=== PATIENT | female | born 1940 | race Caucasian/White ===

== ENCOUNTER 2020-10-19 04:37 | Emergency (ER) | payer MEDICARE, SELFPAY ==
--- NOTE | ~2020-10-19 | CT_ITS ---
EXAMINATION: CT brain wo con DATE: 10/19/2020 05:10 INDICATION: Fall with posterior head injury TECHNIQUE: Computed tomography (CT) of the head was performed without intravenous contrast. Sagittal and coronal reconstructions were performed. The mA was adjusted according to patient size. Iterative reconstruction technique was employed. The dose-length product was 605.33 mGy-cm. COMPARISON: head CT dated 02/15/17 FINDINGS: No fracture. No acute intracranial hemorrhage, acute infarction or abnormal extra axial fluid collect ion. There is mild scattered white matter hypoattenuation consistent with chronic small vessel ischem ic disease. Symmetric prominence of the sulci consistent with mild age-appropriate diffuse cerebral v olume loss. Ventricles are normal and symmetric. No mass/mass effect. Mild mucosal thickening the lef t maxillary sinus. The orbits and mastoid air cells are normal. Intracranial calcified cerebral ather osclerosis is noted. IMPRESSION: 1. No fracture or acute intracranial process. 2. Age-related changes including mild diffuse volume loss and mild scattered white matter hypoattenua tion consistent with chronic small vessel ischemic disease. Reviewed, dictated and finalized at location [facility]. IMPRESSION: 1. No fracture or acute intracranial process. 2. Age-related changes including mild diffuse volume loss and mild scattered wh ite matter hypoattenuation consistent with chronic small vessel ischemic diseas e.
--- NOTE | ~2020-10-19 | XR_ITS ---
EXAMINATION: XR ribs LT 2V w CXR 2V DATE: 10/19/2020 05:17 INDICATION: Lateral sided left rib pain post fall TECHNIQUE: PA and lateral views of the chest and 3 views of the left ribs were obtained. COMPARISON: Chest radiograph dated 01/14/2016 FINDINGS: Old healed lateral left seventh rib fracture. No acute rib fractures identified. Lungs are clear with no focal airspace opacities, pulmonary edema, pleural effusion or pneumothorax. Mild lumbar levoscol iosis. Moderate thoracic spondylosis. Severe lower lumbar spondylosis. At least moderate severity ost eoarthritis at both shoulders. Cholecystectomy clips in right upper quadrant. IMPRESSION: 1. No acute rib fracture or acute cardiopulmonary disease. Reviewed, dictated and finalized at location A.
[2020-10-19 04:38] VITALS: BP 129/57; PULSE 72; RESP 16; TEMP 37; O2SAT 100
--- NOTE | 2020-10-19 04:47 | ED.HEATRA ---
HPI - Head Injury General Chief complaint: Head Injury Stated complaint: fell, head injury Time Seen by Provider: 10/19/20 04:46 History of Present Illness HPI Narrative: 80 yo female presents form home after a fall. She reports that she was walking around in socks when one of them slipped causing her to fall. She struck the left side of her ihea in the fall. She sustained a laceration to the left scalp. She has mild pain and would not like anything for it at this time. She denies any other pain or injury. No LOC, confusion, weakness, dizziness, blood thinners. Related Data Allergies Allergy/AdvReac Type Severity Reaction Status Date / Time codeine Allergy Unknown Verified 08/13/14 14:02 NARCOTICS Allergy Unknown Uncoded 02/24/15 15:04 Review of Systems Review of Systems: All systems reviewed & are unremarkable except as noted in HPI and below Cardiovascular: Cardiovascular: Denies chest pain Respiratory: Respiratory: Denies dyspnea Gastrointestinal: Gastrointestinal: Denies nausea Genitourinary: Genitourinary: Reports no additional female genitourinary complaints Musculoskeletal: Musculoskeletal: Denies back pain Neurologic: Denies confusion, Denies dizziness, Denies syncope, Reports headache(s), Denies numbness and Denies weakness Hematologic/Lymphatic: Hematologic/Lymphatic: Denies easy bleeding and Denies easy bruising PMFSH Family History Family History Other Family history of malignant neoplasm of skin Social History Social History Smoking status: Never smoker Alcohol intake: current Exam Const: General: healthy appearing, no acute distress and alert Orientation/consciousness: patient oriented x3 HENMT: Head: laceration (left parietal scalp, 2 cm) Eyes: Conjunctivae: conjunctivae normal Pupils: Equal, round and reactive pupils present EOM: EOMs intact bilaterally Neck: Neck: normal visual inspection Resp: Effort & Inspection: normal respiratory effort Auscultation: clear to auscultation bilaterally, no rales, no rhonchi and no wheezes Cardio: Jugular venous distension: no JVD Rate: regular rate Rhythm: regular rhythm Heart sounds: no murmurs Back/Spine/Pelvis: Other: cervicla spine nontender Skin: General skin exam: normal color Neuro: General: patient oriented x3 and moves all extremities Cranial nerves: Yes CN's II-XII intact bilaterally Speech: normal speech Gait exam (Neuro): Normal gait present Extrem: General: normal to inspection and no edema Psych: Appearance: well kempt Affect: normal affect Course Vital Signs Vital signs: Vital Signs Temperature 37.0 C 10/19/20 04:38 Pulse Rate 72 10/19/20 04:38 Respiratory Rate 16 10/19/20 04:38 Blood Pressure 129/57 L 10/19/20 04:38 Pulse Oximetry 100 10/19/20 04:38 Temperature 37.0 C 10/19/20 04:38 Pulse Rate 67 10/19/20 06:34 Respiratory Rate 18 10/19/20 06:34 Blood Pressure 119/81 10/19/20 06:34 Pulse Oximetry 100 10/19/20 06:34 Procedures Laceration Laceration 1: Site: scalp Side (If applicable): left Size (cm): 2 Description: linear Depth: simple, single layer Local Anesthetic: none Pre-repair: wound explored and irrigated ====== Skin Level ====== Skin layer closed with: reuben Number of sutures: 2 ====== Subcutaneous Layer ====== ====== Muscle Layer ====== ====== Tendon Layer ====== MDM - Head Injury MDM Narrative Medical decision making narrative: Imaging negative. Laceration repaired. walking with stable gait. Imaging Data Radiologist's impression: ITS Impressions Ribs w/Chest X-Ray 10/19/20 10:47 IMPRESSION: 1. No acute rib fracture or acute cardiopulmonary disease. Head CT 10/19/20 12:40 IMPRESSION: 1. No fracture or acute intracranial process. 2. Age-
[2020-10-19 06:34] VITALS: BP 119/81; PULSE 67; RESP 18; O2SAT 100
== END 2020-10-19 06:37 | disposition home or self-care (01) ==
LOC: ANHED 06:20
PROVIDERS: Emergency Provider Emergency Medicine; PCP Internal Medicine
DX: S01.01XA Laceration without foreign body of scalp, initial encounter (principal); W01.0XXA Fall on same level from slipping, tripping and stumbling without subsequent striking against object, initial encounter
CPT/HCPCS: 12001; 70450; 71046; 71100; 99284

== ENCOUNTER 2021-11-23 09:33 | Inpatient (IN) | payer MEDICARE, SELFPAY ==
[2021-11-23] VITALS (23 sets, daily range): BP systolic 95–146; BP diastolic 60–119; PULSE 81–102; RESP 10–30; TEMP 36.3–36.8; O2SAT 93–99; BMI 27.1
--- NOTE | 2021-11-23 | ECHO_ITS ---
Patient Info Name: Prisca Last Age: 81 years : 1940 Gender: Female Ht: 66 in Wt: 149 lbs BSA: 1.78 m2 HR: 94 bpm BP: 102 / 69 mmHg Heart Rhythm: Sinus Rhythm Technical Quality: Fair Exam Date: 11/23/2021 4:21 PM Exam Location: [facility] Pulmonary Exam Room: 205 Patient Status: Inpatient Admit Date: 11/23/2021 Staff Ordering Physician: Luz Maria Morales APRN Shear Setter: Alejandra Madden RDCS Attending Provider: Yessica Puga DO Referring Physician: Carmen MELENDEZ; Exam Type: CA echo doppler color flow Study Info Indications - sob Complete two-dimensional, color flow and Doppler transthoracic echocardiogram is performed. Summary 1. Complete two-dimensional, color flow and Doppler transthoracic echocardiogram is performed. 2. Ventricular size with moderate concentric hypertrophy. Good systolic function of all segments with ejection fraction 65%. No segmental wall motion abnormalities although there is flattening of the ventricular septum during diastole consistent with right ventricular volume overload. Grade 1 diastolic dysfunction is present. 3. Moderate right ventricular enlargement and right ventricular hypokinesis with sparing of the apex, consistent with Omalley's sign, and suggests possible pulmonary embolus. 4. Normal sinus rhythm. Left Ventricle Left ventricular chamber dimension is normal. Left ventricular systolic function is normal, estimated at Empty. There is moderately increased left ventricular wall thickness. Left ventricular septal wall motion is normal. The left ventricular diastolic function is grade I diastolic dysfunction. Right Ventricle Right ventricular chamber dimension is moderately enlarged. Right ventricular systolic function is reduced. Left Atria Left atrial chamber dimension is normal. Right Atria Right atrial chamber dimension is normal. Aortic Valve The aortic valve is trileaflet. There is mild aortic valve sclerosis. There is no aortic valve stenosis. There is no aortic valve regurgitation. Pulmonic Valve The pulmonic valve is normal. There is no pulmonic valve stenosis. There is trace pulmonic regurgitation. Mitral Valve The mitral valve has normal leaflets. There is no mitral valve stenosis. There is no mitral valve regurgitation. Tricuspid Valve The tricuspid valve leaflets are normal. There is no significant tricuspid valve stenosis. There is mild to moderate tricuspid valve regurgitation. Severe pulmonary hypertension, estimated pulmonary arterial systolic pressure is 78 mmHg. Pericardium/Pleural The pericardium appears normal. There is no pericardial effusion. Inferior Vena Cava Normal inferior vena cava with >50% collapse upon inspiration consistent with Empty right atrial pressure, 10 mmHg. Aorta The aortic root size at the sinus of Valsalva is normal. The prox ascending aorta size is normal. Left Ventricular Outflow Tract Name Value Normal LVOT 2D LVOT Diameter 2.0 cm LVOT Doppler LVOT Peak Gradient 5 mmHg LVOT Mean Gradient 3 mmHg
--- NOTE | ~2021-11-23 | CT_ITS ---
EXAMINATION: CTA chest PE protocol DATE: 11/24/2021 10:21 INDICATION: Shortness of breath TECHNIQUE: Computed tomography angiography (CTA) of the chest was performed with 100 mL Omnipaque-350 intravenous contrast timed to evaluate the pulmonary arteries. Coronal maximum intensity projection 3D-reconstructions were created by the technologist. Automated exposure control and iterative reconst ruction technique were employed. Exam dose: 396.31 mGy-cm total exam DLP. COMPARISON: 11/23/2021 AP and lateral chest FINDINGS: There is diagnostic contrast enhancement of the pulmonary arteries. There is extensive bila teral pulmonary embolism including saddle embolus at the pulmonary artery bifurcation, extending into left and right main pulmonary arteries. Right pulmonary artery bifurcation saddle embolus and extens jos clot burden in the right upper, middle and lower lobes. There are left upper lobe, lingular and l eft lower lobe pulmonary emboli. There is right ventricular strain. Cardiomegaly. No pericardial or pleural effusion. Borderline thoracic aortic size, the ascending aorta measuring up to 3.8 cm diameter, the aortic arch up to 3 cm diameter; normal caliber of the descending thoracic aorta. No hilar or mediastinal mass lesion or lymphadenopathy. No pulmonary infiltrate or consolidation or pulmonary mass lesion. Small sliding hiatal hernia. Status post cholecystectomy. Suggestion of some surface nodularity of liver; consider cirrhosis. Calcified hepatic and splenic gra nulomas consistent with old granulomatous disease. Upper pole right renal cyst. Small nonobstructing left renal calculus Bilateral glenohumeral osteoarthritis. Degenerative changes of the cervical, thoracic and lumbar spin e, including severe degenerative disc disease at C5-6, diffuse idiopathic skeletal hyperostosis of th e thoracic spine, lumbar degenerative disc disease. No suspicious osteolytic or osteoblastic lesions are noted.. IMPRESSION: Extensive bilateral pulmonary emboli with evidence of right ventricular strain Dr. Armendariz telephoned the report on 11/24/2021 at 1034 hours to IMU nurse Jensen Reviewed, dictated and finalized at [facility]. Reviewed, dictated and finalized at location B. IMPRESSION: Extensive bilateral pulmonary emboli with evidence of right ventri cular strain Dr. Armendariz telephoned the report on 11/24/2021 at 1034 hours to IMU nurse Camila
--- NOTE | ~2021-11-23 | XR_ITS ---
XR chest 2V DATE: 11/23/2021 10:16 INDICATION: Shortness of breath TECHNIQUE: AP and lateral views COMPARISON: 10/19/2020 PA and lateral chest FINDINGS: There is cardiomegaly. Is aortic calcification and mild tortuosity. No hilar or mediastinal enlargement. The lungs are moderately hyperinflated but clear of infiltrate or consolidation. No pleural effusion or pulmonary vascular congestion or pneumothorax. Diffuse osteopenia. There is osteophytic change at the glenohumeral joints and degenerative change at the acromioclavicular joints. There is dextroscoliosis and degenerative spurring of the thoracic spi ne. IMPRESSION: Cardiomegaly Aortic atherosclerosis Moderate hyperinflation. No active pulmonary disease Reviewed, dictated and finalized at location B.
--- NOTE | 2021-11-23 09:41 | ECG_ITS ---
Measurements Intervals [place] Rate: 91 P: 69 TN: 162 QRS: -27 QRSD: 103 T: -59 QT: 359 QTc: 442 Interpretive Statements SINUS RHYTHM BORDERLINE LEFT AXIS DEVIATION [QRS AXIS < -20] INCOMPLETE RIGHT BUNDLE BRANCH BLOCK [90+ ms QRS DURATION, TERMINAL R IN V1/V2, 40+ ms S IN I/aVL/V4/V5/V6] POSSIBLE PREVIOUS INFERIOR INFARCTION ABNORMAL ECG NO PREVIOUS ECG AVAILABLE FOR COMPARISON Electronically Signed On 11-23-2021 15:47:43 CDT by Mod[place] Marie M.D.
--- NOTE | 2021-11-23 09:51 | ED.WEAKNESS ---
HPI - Weakness General Chief complaint: Shortness of Breath/Dyspnea Stated complaint: difficulty breathing, light headed, weakness Time Seen by Provider: 11/23/21 09:43 History of Present Illness HPI Narrative: Patient is a 81-year-old female who tells me she is previously healthy here for evaluation of weakness over the past 3 days. Patient states that she has been feeling winded and short of breath with her everyday activities, which she states is very unusual for her. She states that she has been taking it easy the past couple of days because of feeling weak, but today it increased and she was unable to get out of bed. Denies syncope, chest pain, fevers, chills, cough, leg swelling, rhinorrhea, congestion, nausea, vomiting, abdominal pain, rashes. Related Data Home Medications Medication Instructions Recorded Confirmed cholecalciferol (vitamin D3) 50 50 mcg PO DAILY 11/04/20 11/23/21 mcg (2,000 unit) capsule donepezil 10 mg tablet 10 mg PO QHS 11/04/20 11/23/21 escitalopram oxalate 20 mg tablet 20 mg PO DAILY 11/04/20 11/23/21 multivitamin 1 tablet PO DAILY 11/04/20 11/23/21 memantine 10 mg tablet 10 mg PO BID 11/23/21 11/23/21 Allergies Allergy/AdvReac Type Severity Reaction Status Date / Time codeine Allergy Intermediate Nausea Verified 11/04/20 14:49 NARCOTICS Allergy Intermediate Nausea Uncoded 11/04/20 14:49 Review of Systems Review of Systems: Gen: Reports fatigue and weakness Eyes: Denies eye pain or visual change ENT: Denies congestion Respiratory: Reports shortness of breath. Denies cough CV: Denies chest pain or palpitations GI: Denies abdominal pain nausea, emesis or diarrhea : denies burning, urgency, frequency or hematuria Musculoskeletal: Denies back pain or muscle pain Neuro: Denies numbness, tingling, weakness or focal weakness Skin: Denies rash Except as documented, all other systems reviewed and negative [facility] Past Medical History Medical History Abnormality of gait Alzheimer's dementia Cerebral atherosclerosis Diverticulosis ALINA (generalized anxiety disorder) Laceration of head Surgical History Surgical History History of cholecystectomy Family History Family History Mother , Late 70s Heart disease Father Family estrangement Other Family history of malignant neoplasm of skin Social History Social History (Updated 11/23/21 @ 15:06 by Luz Maria Morales APRN) Social History: , sedentary Smoking status: Never smoker Second hand tobacco smoke exposure: No Alcohol intake: never Substance use: never Substance use type: does not use Living arrangements: with family Additional living arrangements comments: lives with spouse and son Gender identity (if verbalized by the patient): Female Sexual Orientation (if Verbalized by the Patient): Straight or Heterosexual Spiritual care concerns: No Exam Narrative: APPEARANCE: Ill-appearing, fatigued appearing. Head: Normocephalic and atraumatic. EYES: PERRLA/EOMI, conjunctivae clear NOSE: No nasal drainage EARS: External ear normal in appearance THROAT: Oropharynx is clear. Mucous membranes are moist. NECK: Supple. No adenopathy, no masses. RESPIRATORY: Airway patent, respirations nonlabored. Clear to auscultation bilaterally, no rales, rhonchi, wheezing. CARDIOVASCULAR: Regular rate and rhythm without murmurs, rubs, or gallops. ABDOMINAL: Normoactive bowel sounds. Soft, nontender, nondistended. No rebound tenderness or guarding. MUSCULOSKELETAL: Extremities are warm and well-perfused. Moves all extremities well. No edema. NEURO: Normal speech. No focal neurologic deficits. SKIN: Skin is warm and dry. No rashes. PSYCHIATRIC: Normal affect/mood. Course Course Emergency Course: Discussed with yeimi schmid
[2021-11-23 10:03] LABS: Basophils Percent Auto 0.3 % (0.2-1.2); Eosinophils Absolute Auto 0.1 K/mm3 (0-0.3); Eosinophils Percent Auto 0.4 % (0-4.4); Hemoglobin 15.3 g/dL (12.0-15.0); Immature Granulocyte Absolute 0.05 K/mm3 (0.00-0.031); Immature Granulocyte Percent A 0.4 % (0-0.5); Lymphocytes Absolute Auto 2.48 K/mm3 (0.9-3.2); Lymphocytes Percent Auto 17.9 % (18.3-44.2); Mean Corpuscular HGB Conc 32.6 g/dl (32-36); Mean Corpuscular Hemoglobin 28.8 pg (26-34); Mean Corpuscular Volume 88.3 fl (80-100); Mean Platelet Volume 11.3 fl (7.4-10.4); Monocytes Absolute Auto 0.9 K/mm3 (0.1-0.6); Monocytes Percent Auto 6.8 % (2.6-8.5); Neutrophils Absolute Auto 10.3 K/mm3 (1.3-6.7); Neutrophils Percent Auto 74.2 % (45.5-73.1); Platelet Count Result 188 k/mm3 (150-375); Red Blood Count 5.32 M/mm3 (4.2-5.4); Red Cell Distribution Width 13.7 % (11.5-14.5); White Blood Count 13.9 K/mm3 (4.5-10.0)
--- NOTE | 2021-11-23 10:18 | PC.NURSE ---
Pt states she is unable to void at this time.
[2021-11-23 10:24] LABS: Alanine Aminotransferase 22 U/L (6-35); Albumin Level 4.5 g/dL (3.5-5.1); Alkaline Phosphatase 71 U/L (38-126); Anion Gap 11 mmol/L (8-16); Aspartate Amino Transferase 33 U/L (14-36); Bilirubin,Total 1.7 mg/dL (0.2-1.3); Blood Urea Nitrogen 19 mg/dL (7-17); Calcium 9.4 mg/dL (8.4-10.2); Carbon Dioxide 20 mmol/L (22-30); Chloride 106 mmol/L (98-107); Estimated Glomerular Filt Rate 53; Glucose 99 mg/dL (65-110); Potassium 4.5 mmol/L (3.4-5.0); Sodium 137 mmol/L (137-145)
[2021-11-23 10:37] LABS: INR 1.1
[2021-11-23 10:38] LABS: Partial Thromboplastin Time 28.1 SECONDS (22.3-36.8)
[2021-11-23 10:56] LABS: NT Pro B Type Natriuretic Pept 10800 pg/mL (5-100)
[2021-11-23 11:24] LABS: SARS-CoV-2 RNA PCR Negative
--- NOTE | 2021-11-23 11:57 | PC.NURSE ---
Lasix discontinued per ANGEL Tate.
--- NOTE | 2021-11-23 13:28 | ADMGEN ---
This patient, Prisca Last, was admitted to IMU Room 205-02. Patient/family oriented to hospital policies and general routines including ID bracelet, bed and alarms, visiting hours, pain management, procedures, bathroom and other care routines, personal items, smoking policy, room service/diet, and visiting hours. Information on how to activate the Rapid Response Team has been discussed. Patient/Family are encouraged to report perceived risks to care and to ask questions if they do not understand what they are told or what they should do.
[2021-11-23 13:55] LABS: Troponin I 0.062 ng/mL (0.000-0.034)
--- NOTE | 2021-11-23 13:56 | PM.IMHP ---
H&P: HPI History of Present Illness Date/Time: 11/23/21 13:56 Chief Complaint: Shortness of breath Narrative: Prisca Last is an 81-year-old female with medical comorbidities of dementia, anxiety, and cerebral atherosclerosis. She presented to the ED for evaluation of progressively worsening dyspnea and weakness. The patient if a poor historian due to her dementia. Her son-in-law and son, whom she lives with, were at bedside and assisted with patient history. The patient was reportedly in her usual health until Tuesday of last week, when she was noted to be dyspneic on exertion, c/o lightheadedness, and had difficulty performing her usual activities. The patient's son states her blood pressure was around 107/80, HR 90-115 bpm, and her oxygen level dropped to the 70s on room air. Her oxygen level would increase to 88-95% after deep breathing he states. No known fever, chills, cough, sputum, diaphoresis, abdominal pain, nausea or vomiting. She reportedly was unsteady, with small bout of diarrhea and poor appetite. The patient reports some tightness in her chest, but when asked to qualify, she states she had to focus on breathing because her lungs couldn't do it. She feels out of breath with activity. Her son-in-law states she is sedentary at baseline and has had difficulty getting to the bathroom due to symptoms, which is not typical. She denies sinus congestion, paroxysmal nocturnal dyspnea, orthopnea, edema, or weight changes. In the ED, vitals were BP 131/119, HR 94, temp 98.2F, spO2 98% on room air. Wgt 76.1 kg, and BMI 27 kg/m2. Lab work was significant for WBC 13.9, normal H/H, troponin I 0.070, pro-BNP 21242, and unremarkable CMP. COVID19 PCR was negative. EKG showed SR with incomplete RBBB and T-wave inversions V3-4. Chest x-ray was without acute process, but did demonstrate hyperinflated lungs and cardiomegaly. She was admitted to IMU for further cardiac evaluation. Review of Systems Review of Systems: All systems reviewed & are unremarkable except as noted in HPI and below PMFSH Past Medical History Medical History Abnormality of gait Alzheimer's dementia Cerebral atherosclerosis Diverticulosis ALINA (generalized anxiety disorder) Laceration of head Surgical History Surgical History History of cholecystectomy Family History Family History Mother , Late 70s Heart disease Father Family estrangement Other Family history of malignant neoplasm of skin Social History Social History (Updated 11/23/21 @ 15:06 by Luz Maria Morales APRN) Social History: , sedentary Smoking status: Never smoker Second hand tobacco smoke exposure: No Alcohol intake: never Substance use: never Substance use type: does not use Living arrangements: with family Additional living arrangements comments: lives with spouse and son Gender identity (if verbalized by the patient): Female Sexual Orientation (if Verbalized by the Patient): Straight or Heterosexual Spiritual care concerns: No Meds Home Medications and Allergies Home Medications Medication Instructions Recorded Confirmed Type cholecalciferol (vitamin D3) 50 50 mcg PO DAILY 11/04/20 11/04/20 History mcg (2,000 unit) capsule donepezil 10 mg tablet 10 mg PO QHS 11/04/20 11/04/20 History escitalopram oxalate 20 mg tablet 20 mg PO DAILY 11/04/20 11/04/20 History multivitamin 1 tablet PO DAILY 11/04/20 11/04/20 History memantine 10 mg tablet 10 mg PO BID 11/23/21 11/23/21 History Allergies Allergy/AdvReac Type Severity Reaction Status Date / Time codeine Allergy Intermediate Nausea Verified 11/04/20 14:49 NARCOTICS Allergy Intermediate Nausea Uncoded 11/04/20 14:49 Vital Signs Vital Signs - 24 hr 11/23/21 09:42 11/23/21 10:14 11/23/21 09:47 Temperat
[2021-11-23 16:58] LABS: CRP 1.4 mg/dL (<1.0)
[2021-11-23 17:10] LABS: Troponin I 0.056 ng/mL (0.000-0.034)
[2021-11-23 17:16] LABS: Procalcitonin 0.1 ng/mL
[2021-11-23] MEDS: DOCUSATE SODIUM 100 MG CAPSULE PO (17:45)
[2021-11-23] MEDS: MEMANTINE 10 MG TABLET PO (17:45)
[2021-11-23 19:25] LABS: Appearance Urine Clear (Clear); Bilirubin Urine Negative (Negative); Blood Urine Negative (Negative); Color Urine Yellow (Yellow); Glucose Urine UA Negative (Negative); Ketones Urine Negative (Negative); Leukocyte Esterase Ur 2+ LEU/UL (Negative); Nitrate Urine Negative (Negative); Protein Urine Negative (Negative); Urobilinogen Urine 0.2 mg/dL (<2.0); pH Urine 5.5 (5.0-9.0)
[2021-11-23 19:32] LABS: Bacteria Urine Trace /hpf; Calcium Oxalate Crystals Urine Present /hpf; Mucus Urine Rare /lpf; Squamous Epithelial Cell Urine Occasional /hpf (Few); WBC Urine 31-50 /hpf
[2021-11-23 19:41] LABS: Add Urine Microscopic? YES
[2021-11-24] VITALS (17 sets, daily range): BP systolic 105–143; BP diastolic 63–85; PULSE 84–106; RESP 18–20; TEMP 36.4–37.1; O2SAT 90–97
[2021-11-24 05:02] LABS: Blood Urea Nitrogen 17 mg/dL (7-17)
[2021-11-24 05:03] LABS: Anion Gap 8 mmol/L (8-16); Calcium 8.8 mg/dL (8.4-10.2); Carbon Dioxide 23 mmol/L (22-30); Chloride 107 mmol/L (98-107); Cholesterol 194 mg/dL (0-200); Estimated CRCL calculation 36 ml/min; Estimated Glomerular Filt Rate 53; Glucose 105 mg/dL (65-110); HDL Direct 41 mg/dL; LDL Cholesterol Direct 110 mg/dL; Magnesium 2.2 mg/dL (1.6-2.3); Potassium 3.9 mmol/L (3.4-5.0); Sodium 138 mmol/L (137-145); Triglycerides 178 mg/dL (<150)
--- NOTE | 2021-11-24 07:00 | ECG_ITS ---
Measurements Intervals [place] Rate: 91 P: 68 MI: 148 QRS: -23 QRSD: 101 T: -37 QT: 409 QTc: 504 Interpretive Statements SINUS RHYTHM LOW QRS VOLTAGE IN PRECORDIAL LEADS INCOMPLETE RIGHT BUNDLE BRANCH BLOCK POSSIBLE ANTERIOR MYOCARDIAL INFARCTION , OF INDETERMINATE AGE INFERIOR MYOCARDIAL INFARCTION , OF INDETERMINATE AGE T-WAVE ABNORMALITY, CONSIDER ISCHEMIA Electronically Signed On 11-24-2021 12:58:08 CDT by Meño Bowen M.D.
[2021-11-24 08:26] LABS: Hematocrit 43.2 % (37.0-47.0); Mean Corpuscular HGB Conc 32.4 g/dl (32-36); Mean Corpuscular Hemoglobin 28.9 pg (26-34); Mean Corpuscular Volume 89.1 fl (80-100); Mean Platelet Volume 11.7 fl (7.4-10.4); Platelet Count Result 179 k/mm3 (150-375); Red Blood Count 4.85 M/mm3 (4.2-5.4); Red Cell Distribution Width 13.6 % (11.5-14.5); White Blood Count 12.2 K/mm3 (4.5-10.0)
--- NOTE | 2021-11-24 09:12 | PM.CNCAR ---
Assessment and Plan Assessment and plan (1) Dyspnea: Qualifiers: Dyspnea type: shortness of breath Qualified Code(s): R06.02 - Shortness of breath Code(s): R06.00 - Dyspnea, unspecified Status: Acute Assessment and Plan: Sedentary older lady admitted with shortness of breath, initially thought to be CHF due to elevated proBNP. However her chest x-ray is clear. Echo findings are consistent with a pulmonary embolus, with right ventricular enlargement and hypokinesis, Omalley will sign, and severe pulmonary hypertension. Normal left ventricle. Stat CTA of the chest Lovenox x1 now; discussed with RN Discussed my concerns with patient's and son (2) Pulmonary hypertension: Code(s): I27.20 - Pulmonary hypertension, unspecified Status: Acute Assessment and Plan: Severe pulmonary hypertension in the absence of chronic lung disease, suggestive of pulmonary embolus (3) Elevated troponin: Code(s): R77.8 - Other specified abnormalities of plasma proteins Status: Acute Assessment and Plan: Patient has an elevated troponin and abnormal EKG. Pulmonary embolus is suspected If CTA is negative, will evaluate for coronary disease (4) Alzheimer's dementia: Code(s): G30.9 - Alzheimer's disease, unspecified; F02.80 - Dementia in other diseases classified elsewhere without behavioral disturbance Status: Chronic Assessment and Plan: Pleasantly demented lady, cooperative. History of Present Illness History of Present Illness Consult date/time: 11/24/21 09:12 Reason For Visit: Dyspnea Narrative: Prisca Last is an 81 y.o. female whom we were asked to see by Lea ORTIZ, for our advice an opinion regarding her elevated troponins and BNP in consultation. H/O dementia. The patient has been previously healthy with no history of heart disease, blood clots or lung disease. She was in her normal state of health until Tuesday when family members noted that she was short of breath. She also complained of weakness. She might of had some tightness in her chest, but she denied any chest pain on my conversation. The patient states she is ?always on the go? and does not like to sit but the family member states that she is very sedentary. No edema, hypertension, diabetes, bleeding problems, recent car trips. History was obtained from EMR, the patient, and because of her dementia I also spoke to the patient's and son Pito. Review of Systems Constitutional: Constitutional: Reports fatigue (Weakness recently) Eyes: Eyes: Reports no additional eye complaints ENT: Denies epistaxis Cardiovascular: Cardiovascular: Reports chest pain (Perhaps some tightness?), Denies pedal edema, Denies leg edema, Denies lightheadedness and Denies palpitations Respiratory: Respiratory: Denies chest congestion, Denies cough, Reports dyspnea and Reports dyspnea on exertion Gastrointestinal: Gastrointestinal: Denies abdominal pain, Denies hematochezia and Denies hematemesis Musculoskeletal: Musculoskeletal: Denies back pain Integumentary/Breasts: Skin/Breast: Denies rash Neurologic: Reports confusion Psychiatric: Psychiatric: Reports no additional psychiatric complaints PMFSH Past Medical History Medical History Abnormality of gait Alzheimer's dementia [facility]. Cerebral atherosclerosis Diverticulosis ALINA (generalized anxiety disorder) Laceration of head Surgical History Surgical History History of cholecystectomy Family History Family History Mother , Late 70s Heart disease Father Family estrangement Other Family history of malignant neoplasm of skin Social History Social History (Updated 0
[2021-11-24] MEDS: ESCITALOPRAM OXALATE 10 MG TABLET 20 MG PO (10:52)
[2021-11-24] MEDS: CHOLECALCIFEROL 1,000 UNITS TABLET 2000 UNITS PO (10:52)
[2021-11-24] MEDS: PANTOPRAZOLE 40 MG TABLET PO (10:52)
[2021-11-24] MEDS: DONEPEZIL HCL 10 MG TABLET PO (10:52)
[2021-11-24] MEDS: DOCUSATE SODIUM 100 MG CAPSULE PO ×2 (10:52→17:41)
[2021-11-24] MEDS: MULTIVITAMINS THERAPEUTIC TAB (*BKC) 1 TABLET PO (10:52)
[2021-11-24] MEDS: ROSUVASTATIN 10 MG TABLET PO (10:53)
[2021-11-24] MEDS: ENOXAPARIN 80 MG/0.8 ML SYRINGE 75 MG SUB-Q ×2 (10:55→20:45)
[2021-11-24] MEDS: MEMANTINE 10 MG TABLET PO ×2 (10:56→17:41)
--- NOTE | 2021-11-24 11:37 | PCPTNOTE ---
Attempted PT evaluation, per RN, patient is not medically stable to be seen today due to having Extensive bilateral pulmonary emboli with evidence of right ventricular strain. Will Follow.
--- NOTE | 2021-11-24 12:03 | PM.IMPN ---
Progress Note: A&P Assessment and Plan (1) Acute saddle pulmonary embolism: Code(s): I26.92 - Saddle embolus of pulmonary artery without acute cor pulmonale Status: Acute Assessment and Plan: C/o SOB with minimal exertion (per family) x 3 days, w/associated weakness, lightheadedness. pro-BNP 23505, Troponin 0.70-->0.62, WBC 13.9, no reported fevers, chest X-ray with cardiomegaly, hyperinflation and no acute pulmonary disease. COVID19 PCR negative. CTA chest positive for bilateral PE with saddle embolus. Lovenox 1 mg/kg started. Patient is hemodynamically stable, not requiring supplemental O2 and able to tolerate anticoagulation. Consider transfer for thrombolysis or embolectomy if patient becomes unstable. Transition to DOAC prior to discharge. Transthoracic echocardiogram no CHF, dose show right heart strain and severe pulmonary hypertension. Cardiology following (2) Pulmonary hypertension: Code(s): I27.20 - Pulmonary hypertension, unspecified Status: Acute Assessment and Plan: Secondary to above. (3) Elevated troponin: Code(s): R77.8 - Other specified abnormalities of plasma proteins Status: Acute Assessment and Plan: Trending down. Secondary to above. (4) Generalized weakness: Code(s): R53.1 - Weakness Status: Acute Assessment and Plan: w/unsteady gait per family. Consult PT/OT. (5) Alzheimer's dementia: Code(s): G30.9 - Alzheimer's disease, unspecified; F02.80 - Dementia in other diseases classified elsewhere without behavioral disturbance Status: Chronic Assessment and Plan: Continue donepezil. (6) ALINA (generalized anxiety disorder): Code(s): F41.1 - Generalized anxiety disorder Status: Chronic Assessment and Plan: Continue lexapro. Plan CODE STATUS: FULL CODE DISPOSITION: Home with family ESTIMATED LOS: >3 midnights Subjective Date/time seen: 11/24/21 12:03 Patient does not know why she is in the hospital. She denies chest pain, SOB, cough, hemoptysis, pain or swelling. Nursing reports no overnight events. Review of Systems Review of Systems: All systems reviewed & are unremarkable except as noted in HPI and below Exam Narrative: GENERAL: no distress, older adult female sitting up in bed. No oxygen. HEENT: normocephalic, PERRLA. conjunctivae clear. Mucous membranes moist. NECK: No JVD. LUNGS: Respirations 20 bpm. Lung sounds diminished RLL. No wheezing. Speaking in full sentences. HEART: Normal S1 and S2 regular rate and rhythm without murmurs, rubs or gallops. NSR on telemetry. ABDOMEN: Soft, round, nontender to palpation. Normoactive bowel sounds.? No guarding. EXTREMITIES: Moves all extremities equally and with generalized weakness 4-5/5 bilaterally. No edema. No calf tenderness. Radial and dorsalis pedis pulses palpable. NEURO: Alert and oriented to self, hospital, forgetful. No focal deficits. SKIN: Warm, dry. Fair skin, normal for ethnicity. No rashes, lesions or open wounds. Mildly dry BLE. PSYCHIATRIC: Neutral mood and affect. Cooperative with examination. Pleasant. Objective Data Vital Signs Vital Signs: Vital Signs - 24 hr 11/23/21 12:05 11/23/21 12:41 11/23/21 12:52 Temperature Pulse Rate 90 86 89 Respiratory Rate 15 14 15 Blood Pressure Pulse Oximetry 97 95 96 Oxygen Delivery 11/23/21 13:55 11/23/21 15:25 11/23/21 16:00 Temperature 97.3 F L Pulse Rate 93 81 Respiratory Rate 30 H Blood Pressure 102/69 Pulse Oximetry 94 Oxygen Delivery Room Air 11/23/21 16:00 11/23/21 18:02 11/23/21 18:00 Temperature 97.6 F Pulse Rate 95 89 Respiratory Rate 24 H Blood Pressure 109/68 Pulse Oximetry 94 94 Oxygen Delivery Room Air 11/23/21 20:00 11/23/21 20:00 11/23/21 20:00 Temperature 97.9 F Pulse Rate 98 93 Respiratory Rate 18 Blood Pressure 114/60 Pulse Oximetry 96 Ox
[2021-11-25] VITALS (17 sets, daily range): BP systolic 105–139; BP diastolic 41–80; PULSE 80–100; RESP 18–22; TEMP 36.2–36.7; O2SAT 94–100
[2021-11-25] MEDS: CHOLECALCIFEROL 1,000 UNITS TABLET 2000 UNITS PO (09:01)
[2021-11-25] MEDS: ROSUVASTATIN 10 MG TABLET PO (09:01)
[2021-11-25] MEDS: ESCITALOPRAM OXALATE 10 MG TABLET 20 MG PO (09:01)
[2021-11-25] MEDS: DOCUSATE SODIUM 100 MG CAPSULE PO ×2 (09:01→16:49)
[2021-11-25] MEDS: MEMANTINE 10 MG TABLET PO ×2 (09:01→16:49)
[2021-11-25] MEDS: MULTIVITAMINS THERAPEUTIC TAB (*BKC) 1 TABLET PO (09:01)
[2021-11-25] MEDS: PANTOPRAZOLE 40 MG TABLET PO (09:01)
[2021-11-25] MEDS: ENOXAPARIN 80 MG/0.8 ML SYRINGE 75 MG SUB-Q ×2 (09:02→21:36)
[2021-11-25] MEDS: DONEPEZIL HCL 10 MG TABLET PO (09:02)
--- NOTE | 2021-11-25 12:30 | PM.IMPN ---
Progress Note: A&P Assessment and Plan (1) Acute saddle pulmonary embolism: Code(s): I26.92 - Saddle embolus of pulmonary artery without acute cor pulmonale Status: Acute Assessment and Plan: C/o SOB with minimal exertion (per family) x 3 days, w/associated weakness, lightheadedness. pro-BNP 96032, Troponin 0.70-->0.62, WBC 13.9, no reported fevers, chest X-ray with cardiomegaly, hyperinflation and no acute pulmonary disease. COVID19 PCR negative. CTA chest positive for bilateral PE with saddle embolus. Lovenox 1 mg/kg started. Patient is hemodynamically stable, not requiring supplemental O2 and able to tolerate anticoagulation. Consider transfer for thrombolysis or embolectomy if patient becomes unstable. Transition to DOAC prior to discharge. Transthoracic echocardiogram no CHF, dose show right heart strain and severe pulmonary hypertension. Cardiology following (2) Pulmonary hypertension: Code(s): I27.20 - Pulmonary hypertension, unspecified Status: Acute Assessment and Plan: Secondary to above. (3) Elevated troponin: Code(s): R77.8 - Other specified abnormalities of plasma proteins Status: Acute Assessment and Plan: Trending down. Secondary to above. (4) Generalized weakness: Code(s): R53.1 - Weakness Status: Acute Assessment and Plan: w/unsteady gait per family. Consult PT/OT. (5) Alzheimer's dementia: Code(s): G30.9 - Alzheimer's disease, unspecified; F02.80 - Dementia in other diseases classified elsewhere without behavioral disturbance Status: Chronic Assessment and Plan: Continue donepezil. (6) ALINA (generalized anxiety disorder): Code(s): F41.1 - Generalized anxiety disorder Status: Chronic Assessment and Plan: Continue lexapro. Plan CODE STATUS: FULL CODE DISPOSITION: Home with family ESTIMATED LOS: >3 midnights Subjective Date/time seen: 11/25/21 12:30 Patient is alert and oriented sitting and in bed. Lunch tray in front of her. Patient is able to feed herself. She is on 3 L of oxygen per nasal cannula. Patient does not wear oxygen at home. She has not gotten out of bed. Patient denies a family history of blood clotting disorder. This is her 1st blood clot. Patient endorses shortness of breath despite being on 3 L of oxygen. Cardiology has been consulted and is following the patient. This time no significant intervention needs performed. Echocardiogram read right heart strain. She was placed on a DOAC and heparin drip was discontinued. Patient will work with physical therapy and occupational therapy to improve mobility Review of Systems Review of Systems: All systems reviewed & are unremarkable except as noted in HPI and below Exam Narrative: GENERAL: no distress, older adult female sitting up in bed. 3L oxygen NC. HEENT: normocephalic, PERRLA. conjunctivae clear. Mucous membranes moist. NECK: No JVD. LUNGS: Respirations 18 bpm. Lung sounds diminished throughout. No wheezing. Speaking in full sentences. HEART: Normal S1 and S2 regular rate and rhythm without murmurs, rubs or gallops. NSR on telemetry. ABDOMEN: Soft, round, nontender to palpation. Normoactive bowel sounds.? No guarding. EXTREMITIES: Moves all extremities equally and with generalized weakness 4-5/5 bilaterally. No edema. No calf tenderness. Radial and dorsalis pedis pulses palpable. NEURO: Alert and oriented to self, hospital, forgetful. No focal deficits. SKIN: Warm, dry. Fair skin, normal for ethnicity. No rashes, lesions or open wounds. Mildly dry BLE. PSYCHIATRIC: Neutral mood and affect. Cooperative with examination. Pleasant. Objective Data Vital Signs Vital Signs: Vital Signs - 24 hr 11/24/21 14:00 11/24/21 16:05 11/24/21 16:00 Temperature 98.4 F Pulse Rate 98 99 Respiratory Rate 18 Blood Pressure 118/74 Pulse Oximetry 93 Oxygen Delivery Room
[2021-11-26] VITALS (18 sets, daily range): BP systolic 104–130; BP diastolic 64–90; PULSE 78–99; RESP 14–24; TEMP 35.7–36.8; O2SAT 93–98
[2021-11-26] MEDS: DONEPEZIL HCL 10 MG TABLET PO (08:54)
[2021-11-26] MEDS: ROSUVASTATIN 10 MG TABLET PO (08:54)
[2021-11-26] MEDS: CHOLECALCIFEROL 1,000 UNITS TABLET 2000 UNITS PO (08:54)
[2021-11-26] MEDS: MULTIVITAMINS THERAPEUTIC TAB (*BKC) 1 TABLET PO (08:54)
[2021-11-26] MEDS: DOCUSATE SODIUM 100 MG CAPSULE PO ×2 (08:54→16:40)
[2021-11-26] MEDS: PANTOPRAZOLE 40 MG TABLET PO (08:54)
[2021-11-26] MEDS: ESCITALOPRAM OXALATE 10 MG TABLET 20 MG PO (08:54)
[2021-11-26] MEDS: MEMANTINE 10 MG TABLET PO ×2 (08:54→16:40)
[2021-11-26] MEDS: ENOXAPARIN 80 MG/0.8 ML SYRINGE 75 MG SUB-Q ×2 (08:54→20:06)
--- NOTE | 2021-11-26 10:57 | PM.IMPN ---
Progress Note: A&P Assessment and Plan (1) Acute saddle pulmonary embolism: Code(s): I26.92 - Saddle embolus of pulmonary artery without acute cor pulmonale Status: Acute Assessment and Plan: C/o SOB with minimal exertion (per family) x 3 days, w/associated weakness, lightheadedness. pro-BNP 95976, Troponin 0.70-->0.62, WBC 13.9, no reported fevers, chest X-ray with cardiomegaly, hyperinflation and no acute pulmonary disease. COVID19 PCR negative. CTA chest positive for bilateral PE with saddle embolus. Lovenox 1 mg/kg started. Patient is hemodynamically stable, not requiring supplemental O2 and able to tolerate anticoagulation. Consider transfer for thrombolysis or embolectomy if patient becomes unstable. Transition to DOAC prior to discharge. As the patient has decreased oxygen requirements, she is currently at 1 L per nasal cannula without any respiratory distress or chest pain. She will be transition to a DOAC on 11/27/2021, this was sent insurance for authorization prior to discharge Transthoracic echocardiogram no CHF, dose show right heart strain and severe pulmonary hypertension. Cardiology following (2) Pulmonary hypertension: Code(s): I27.20 - Pulmonary hypertension, unspecified Status: Acute Assessment and Plan: Secondary to above. (3) Elevated troponin: Code(s): R77.8 - Other specified abnormalities of plasma proteins Status: Acute Assessment and Plan: Trending down. Secondary to above. (4) Generalized weakness: Code(s): R53.1 - Weakness Status: Acute Assessment and Plan: w/unsteady gait per family. Consult PT/OT. (5) Alzheimer's dementia: Code(s): G30.9 - Alzheimer's disease, unspecified; F02.80 - Dementia in other diseases classified elsewhere without behavioral disturbance Status: Chronic Assessment and Plan: Continue donepezil. (6) ALINA (generalized anxiety disorder): Code(s): F41.1 - Generalized anxiety disorder Status: Chronic Assessment and Plan: Continue lexapro. Plan CODE STATUS: FULL CODE DISPOSITION: Home with family ESTIMATED LOS: >3 midnights Subjective Date/time seen: 11/26/21 10:57 Interval history: Patient is doing well this morning. She is down 1 L of oxygen per nasal cannula. Physical therapy and occupational therapy to work with the patient. Patient is able to get up with assistance. Pending authorization for insurance for Eliquis to begin. Plan to start Eliquis on 11/27/2021. Patient currently receiving therapeutic Lovenox b.i.d.. Review of Systems Review of Systems: All systems reviewed & are unremarkable except as noted in HPI and below Exam Narrative: GENERAL: no distress, older adult female sitting up in bed. 3L oxygen NC. HEENT: normocephalic, PERRLA. conjunctivae clear. Mucous membranes moist. NECK: No JVD. LUNGS: Respirations 18 bpm. Lung sounds diminished throughout. No wheezing. Speaking in full sentences. 1 L per nasal cannula HEART: Normal S1 and S2 regular rate and rhythm without murmurs, rubs or gallops. NSR on telemetry. ABDOMEN: Soft, round, nontender to palpation. Normoactive bowel sounds.? No guarding. EXTREMITIES: Moves all extremities equally and with generalized weakness 4-5/5 bilaterally. No edema. No calf tenderness. Radial and dorsalis pedis pulses palpable. NEURO: Alert and oriented to self, hospital, forgetful. No focal deficits. SKIN: Warm, dry. Fair skin, normal for ethnicity. No rashes, lesions or open wounds. Mildly dry BLE. PSYCHIATRIC: Neutral mood and affect. Cooperative with examination. Pleasant. Objective Data Vital Signs Vital Signs: Vital Signs - 24 hr 11/25/21 11:57 11/25/21 12:08 11/25/21 16:12 Temperature 98.1 F 97.3 F L Pulse Rate 82 96 Respiratory Rate 18 22 H Blood Pressure 114/72 105/67 Pulse Oximetry 100 96 Oxygen Delivery Nasal Cannula Oxygen Flow Rate 2
--- NOTE | 2021-11-26 13:56 | PM.PNCARD ---
Progress Note: A&P Assessment and Plan (1) Dyspnea: Qualifiers: Dyspnea type: shortness of breath Qualified Code(s): R06.02 - Shortness of breath Code(s): R06.00 - Dyspnea, unspecified Status: Acute Assessment and Plan: Sedentary older lady admitted with shortness of breath, initially thought to be CHF due to elevated proBNP. However her chest x-ray is clear. Echo findings are consistent with a pulmonary embolus, with right ventricular enlargement and hypokinesis, Omalley will sign, and severe pulmonary hypertension. Normal left ventricle. CTA revealed saddle embolus Being systemically anticoagulated with Eliquis Hemodynamically stable Outpatient echo in one month (2) Pulmonary hypertension: Code(s): I27.20 - Pulmonary hypertension, unspecified Status: Acute Assessment and Plan: Severe pulmonary hypertension in the absence of chronic lung disease, suggestive of pulmonary embolus (3) Elevated troponin: Code(s): R77.8 - Other specified abnormalities of plasma proteins Status: Acute Assessment and Plan: Patient has an elevated troponin and abnormal EKG. Related to PE (4) Alzheimer's dementia: Code(s): G30.9 - Alzheimer's disease, unspecified; F02.80 - Dementia in other diseases classified elsewhere without behavioral disturbance Status: Chronic Assessment and Plan: Pleasantly demented lady, cooperative. Subjective Date/time seen: 11/26/21 13:56 Interval history: Feeling well this morning. Complains of some weakness and not being able to do as much with physical therapy as she would like. No chest pain. Does continune to have CAMPOS Review of Systems Constitutional: Constitutional: Reports fatigue (Weakness recently) Eyes: Eyes: Reports no additional eye complaints ENT: Denies epistaxis Cardiovascular: Cardiovascular: Reports chest pain (Perhaps some tightness?), Denies pedal edema, Denies leg edema, Denies lightheadedness, Denies palpitations, Reports dyspnea and Reports dyspnea on exertion Respiratory: Respiratory: Denies chest congestion, Denies cough, Reports dyspnea and Reports dyspnea on exertion Gastrointestinal: Gastrointestinal: Denies abdominal pain, Denies hematochezia and Denies hematemesis Musculoskeletal: Musculoskeletal: Denies back pain Integumentary/Breasts: Skin/Breast: Denies rash Neurologic: Reports confusion Psychiatric: Psychiatric: Reports no additional psychiatric complaints and Reports confusion Endocrine: Endocrine: Reports fatigue (Weakness recently) and Denies palpitations Exam Const: General: comfortable and no acute distress HENMT: Ears: hearing grossly normal bilaterally General nose exam: no epistaxis Mouth: Yes moist mucous membranes Eyes: General: appearance normal, both eyes and all related structures EOM: EOMs intact bilaterally Neck: Neck: no JVD Thyroid: thyroid normal Carotids: no bruits Resp: Auscultation: clear to auscultation bilaterally Cardio: Rate: regular rate Rhythm: regular rhythm Heart sounds: Murmur heart sound present systolic GI: Inspection: non-distended Skin: Rashes: no rashes noted Neuro: General: confusion Speech: normal speech Motor exam (neuro): Normal motor muscle tone present throughout Extrem: General: no edema and no pedal edema Other: Dorsalis pedis pulses are intact Psych: Appearance: well kempt Mental Status: mental status grossly normal Affect: normal affect Objective Data Vital Signs Vital Signs: Vital Signs - 24 hr 11/25/21 16:12 11/25/21 14:00 11/25/21 18:00 Temperature 36.3 C L Pulse Rate 96 88 90 Respiratory Rate 22 H Blood Pressure 105/67 Pulse Oximetry 96 Oxygen Delivery Oxygen Flow Rate 11/25/21 16:00 11/25/21 16:00 11/25/21 19:53 Temperature 36.6 C Pulse Rate 83 87 Respiratory Rate 18 Blood Pressure 115/71 Pulse Oximetry 95 96 Oxygen Delivery Nasal Cannula
[2021-11-27] VITALS (15 sets, daily range): BP systolic 107–116; BP diastolic 66–73; PULSE 73–99; RESP 18–20; TEMP 36.1–36.8; O2SAT 87–100
--- NOTE | 2021-11-27 06:47 | PM.DS ---
DS: Admitting Diagnosis Discharge Date 11/27/21 Admitting Diagnosis Acute saddle pulmonary embolism Acute hypoxic respiratory failure requiring supplemental oxygen Pulmonary hypertension 2/2 pulmonary embolism DS: Discharge Diagnosis Discharge Diagnosis (1) Acute saddle pulmonary embolism: Code(s): I26.92 - Saddle embolus of pulmonary artery without acute cor pulmonale Status: Acute Assessment and Plan: C/o SOB with minimal exertion (per family) x 3 days, w/associated weakness, lightheadedness. pro-BNP 04849, Troponin 0.70-->0.62, WBC 13.9, no reported fevers, chest X-ray with cardiomegaly, hyperinflation and no acute pulmonary disease. COVID19 PCR negative. CTA chest positive for bilateral PE with saddle embolus. Lovenox 1 mg/kg started. Patient is hemodynamically stable, not requiring supplemental O2 and able to tolerate anticoagulation. Consider transfer for thrombolysis or embolectomy if patient becomes unstable. Transition to DOAC prior to discharge. As the patient has decreased oxygen requirements, she is currently at 1 L per nasal cannula without any respiratory distress or chest pain. She will be transition to a DOAC on 11/27/2021, this was sent insurance for authorization prior to discharge Transthoracic echocardiogram no CHF, dose show right heart strain and severe pulmonary hypertension. Cardiology following (2) Pulmonary hypertension: Code(s): I27.20 - Pulmonary hypertension, unspecified Status: Acute Assessment and Plan: Secondary to above. (3) Elevated troponin: Code(s): R77.8 - Other specified abnormalities of plasma proteins Status: Acute Assessment and Plan: Trending down. Secondary to above. (4) Generalized weakness: Code(s): R53.1 - Weakness Status: Acute Assessment and Plan: w/unsteady gait per family. Consult PT/OT. (5) Alzheimer's dementia: Code(s): G30.9 - Alzheimer's disease, unspecified; F02.80 - Dementia in other diseases classified elsewhere without behavioral disturbance Status: Chronic Assessment and Plan: Continue donepezil. (6) ALINA (generalized anxiety disorder): Code(s): F41.1 - Generalized anxiety disorder Status: Chronic Assessment and Plan: Continue lexapro. Plan CODE STATUS: FULL CODE DISPOSITION: Home with family ESTIMATED LOS: >3 midnights DS: Summary Hospital Course Reason for hospitalization: Acute pulmonary embolism Acute hypoxic respiratory failure Hospital Course: Patient is an 81-year-old female with a past medical history of dementia, anxiety, cerebral atherosclerosis and generalized anxiety disorder. Patient presented to [facility] due to progressively worsening dyspnea and weakness. Patient is a poor historian due to her dementia. Her son-in-law and son was able to provide history is able to live with her. 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 The patient reportedly was in her usual health until Tuesday of last week when she was noted to be dyspneic upon exertion complains of lightheadedness. She was having difficulty performing ADLs. The patient's son states her blood pressure was around 107/80 and her heart rate 90-115 beats per minute. Her oxygen level is desaturating on room air 7 days. Her oxygen level with increased 88-95% after deep breathing. They denied any fever, chills, cough, sputum, diaphoresis, abdominal pain, nausea or vomiting. She was reportedly unsteady with small bouts of diarrhea and poor appetite. Patient apparently reported tightness in the chest. Patient was able to focus on her breathing but unable to do so because her lungs could not do it. Patient did report feeling of breath with normal activity and her son states she is sedentary at baseline and had difficulty getting to the bathroom to symptoms. While in the e
[2021-11-27] MEDS: APIXABAN 5 MG TABLET 10 MG PO (08:17)
[2021-11-27] MEDS: DONEPEZIL HCL 10 MG TABLET PO (08:17)
[2021-11-27] MEDS: DOCUSATE SODIUM 100 MG CAPSULE PO (08:17)
[2021-11-27] MEDS: MEMANTINE 10 MG TABLET PO (08:17)
[2021-11-27] MEDS: ROSUVASTATIN 10 MG TABLET PO (08:17)
[2021-11-27] MEDS: MULTIVITAMINS THERAPEUTIC TAB (*BKC) 1 TABLET PO (08:17)
[2021-11-27] MEDS: CHOLECALCIFEROL 1,000 UNITS TABLET 2000 UNITS PO (08:17)
[2021-11-27] MEDS: PANTOPRAZOLE 40 MG TABLET PO (08:17)
[2021-11-27] MEDS: ESCITALOPRAM OXALATE 10 MG TABLET 20 MG PO (08:18)
--- NOTE | 2021-11-27 10:36 | HOMEO2EVAL ---
Evaluation was performed at [facility] Home Oxygen Evaluation RC: Home Oxygen (O2) Evaluation Start: 11/27/21 06:46 Freq: ONCE Status: Active Protocol: RPE Activity Type Activity Date Activity User E-sign Co-sign Detail Recorded Client Recorded Date Recorded By Document 11/27/21 09:50 DJO [email or web address] 11/27/21 10:35 DJO Document 11/27/21 09:55 [email or web address] [email or web address] 11/27/21 10:35 DJO Document 11/27/21 10:00 [email or web address] [email or web address] 11/27/21 10:35 DJO Document 11/27/21 10:05 [email or web address] [email or web address] 11/27/21 10:35 DJO Document 11/27/21 10:20 [email or web address] [email or web address] 11/27/21 10:35 DJO 11/27/21 11/27/21 11/27/21 09:50 09:55 10:00 Home O2 Evaluation Test Phase Resting Exercise Exercise Oxygen Delivery Room Air Room Air Nasal Cannula Oxygen Flow Rate (L/min) 1 Pulse Oximetry (90-100 %) 94 87 L 88 L Pulse Rate (60-100 beats/min) 84 96 99 Activity Tolerance Ambulation Distance (feet) Ambulation Distance (meters) Treatment Charges O2 Evaluation - Inpatient 11/27/21 11/27/21 10:05 10:20 Home O2 Evaluation Test Phase Exercise Resting Oxygen Delivery Nasal Cannula Room Air Oxygen Flow Rate (L/min) 2 Pulse Oximetry (90-100 %) 90 94 Pulse Rate (60-100 beats/min) 99 86 Activity Tolerance Fair Ambulation Distance (feet) 250 Ambulation Distance (meters) 76.19 Treatment Charges
--- NOTE | 2021-11-27 11:19 | PCRCNOTE ---
HOME OXYGEN SET UP WITH [facility]. PHONE NUMBER [phone]. TANK HAD BEEN DELIVERED TO PT'S ROOM FOR DISCHARGE.
== END 2021-11-27 15:03 | disposition home health service (06) | DRG 176 ==
LOC: ANHED 09:56 → ANHIMU 16:32
PROVIDERS: Nurse Practitioner Family; Physician Assistant; Admitting Provider Student in an Organized Health Care Education/Training Program; Emergency Provider Emergency Medicine; Visit Provider Nurse Practitioner Family
DX: I26.92 Saddle embolus of pulmonary artery without acute cor pulmonale (principal); Z20.822 Contact with and (suspected) exposure to COVID-19; I27.20 Pulmonary hypertension, unspecified; G30.9 Alzheimer's disease, unspecified; F02.80 Dementia in other diseases classified elsewhere, unspecified severity, without behavioral disturbance, psychotic disturbance, mood disturbance, and anxiety; F41.1 Generalized anxiety disorder; R77.8 Other specified abnormalities of plasma proteins; K57.90 Diverticulosis of intestine, part unspecified, without perforation or abscess without bleeding; I67.2 Cerebral atherosclerosis; R26.81 Unsteadiness on feet; Z90.49 Acquired absence of other specified parts of digestive tract
CPT/HCPCS: 36415; 71046; 71275; 80048; 80053; 80061; 81001; 83735; 83880; 84145; 84443; 84484; 85025; 85027; 85610; 85730; 86140; 87086; 87088; 93005; 93306; 94618; 97110; 97161; 97165; 97530; 97535; 99285; A9270; C9803; J1650; Q9967; U0003; U0005

== ENCOUNTER 2021-12-11 12:32 | Outpatient (CLI) | payer MEDICARE, SELFPAY ==
--- NOTE | ~2021-12-11 | US_ITS ---
EXAMINATION: US venous doppler [facility] DATE: 12/11/2021 14:13 INDICATION: Acute subtle embolus of pulmonary artery. TECHNIQUE: Grayscale ultrasound images without and with compression and Doppler ultrasound images of the bilateral lower extremity veins were obtained. COMPARISON: None. FINDINGS: The visualized portions of right common femoral vein, profunda (deep) femoral vein, femoral vein, pop liteal vein, peroneal veins, posterior tibial veins, and greater saphenous vein outflow are patent. The visualized portions of left common femoral vein, profunda femoral vein, femoral vein, popliteal v ein, peroneal veins, posterior tibial veins, and greater saphenous vein outflow are patent. IMPRESSION: 1. No deep venous thrombosis. Reviewed, dictated and finalized at location A.
[2021-12-11 14:33] LABS: Basophils Absolute Auto 0.1 K/mm3 (0.0-0.1); Basophils Percent Auto 0.7 % (0.2-1.2); Eosinophils Absolute Auto 0.1 K/mm3 (0-0.3); Eosinophils Percent Auto 1.5 % (0-4.4); Hematocrit 44.1 % (37.0-47.0); Hemoglobin 14.1 g/dL (12.0-15.0); Immature Granulocyte Absolute 0.02 K/mm3 (0.00-0.031); Immature Granulocyte Percent A 0.3 % (0-0.5); Lymphocytes Absolute Auto 2.31 K/mm3 (0.9-3.2); Lymphocytes Percent Auto 30.8 % (18.3-44.2); Mean Corpuscular Hemoglobin 28.3 pg (26-34); Mean Corpuscular Volume 88.4 fl (80-100); Monocytes Absolute Auto 0.5 K/mm3 (0.1-0.6); Neutrophils Absolute Auto 4.6 K/mm3 (1.3-6.7); Neutrophils Percent Auto 60.7 % (45.5-73.1); Platelet Count Result 226 k/mm3 (150-375); Red Blood Count 4.99 M/mm3 (4.2-5.4); Red Cell Distribution Width 13.3 % (11.5-14.5); White Blood Count 7.5 K/mm3 (4.5-10.0)
[2021-12-11 14:45] LABS: Alanine Aminotransferase 16 U/L (6-35); Albumin Level 4.3 g/dL (3.5-5.1); Alkaline Phosphatase 80 U/L (38-126); Anion Gap 3 mmol/L (8-16); Aspartate Amino Transferase 23 U/L (14-36); Bilirubin,Total 1.1 mg/dL (0.2-1.3); Blood Urea Nitrogen 16 mg/dL (7-17); Calcium 9.3 mg/dL (8.4-10.2); Carbon Dioxide 31 mmol/L (22-30); Chloride 104 mmol/L (98-107); Estimated Glomerular Filt Rate 60; Glucose 86 mg/dL (65-110); Potassium 4.2 mmol/L (3.4-5.0); Sodium 138 mmol/L (137-145)
== END 2021-12-11 12:33 | disposition home or self-care (01) ==
PROVIDERS: PCP Family Medicine; Visit Provider Family Medicine
DX: I26.92 Saddle embolus of pulmonary artery without acute cor pulmonale (principal)
CPT/HCPCS: 36415; 80053; 85025; 93970

== ENCOUNTER 2021-12-23 14:28 | Outpatient (CLI) | payer MEDICARE, SELFPAY | END 2021-12-23 14:29 | disposition home or self-care (01) | LOC: ANHAUDASC 14:29 | PROVIDERS: PCP Family Medicine; Visit Provider Family Medicine | DX: H90.3 Sensorineural hearing loss, bilateral (principal) | CPT/HCPCS: 92557; 92567 ==

== ENCOUNTER 2023-08-03 11:51 | Emergency (ER) | payer MEDICARE, SELFPAY ==
--- NOTE | ~2023-08-03 | CT_ITS ---
EXAMINATION: CT brain wo con DATE: 08/03/2023 12:14 INDICATION: Fall with head injury TECHNIQUE: Computed tomography (CT) of the head was performed without intravenous contrast. Sagittal and coronal reconstructions were performed. The mA was adjusted according to patient size. Iterative reconstruction technique was employed. The dose-length product was 605.33 mGy-cm. COMPARISON: head CT dated 10/19/2020 FINDINGS: No fracture. No acute intracranial hemorrhage, acute infarction or abnormal extra axial fluid collect ion. There is mild scattered white matter hypoattenuation consistent with chronic small vessel ischem ic disease. Symmetric prominence of the sulci and ventricles consistent with mild to moderate age-burke ropriate diffuse cerebral volume loss. No mass/mass effect. Intracranial calcified cerebral atheroscl erosis is noted. The orbits, paranasal sinuses and mastoid air cells are normal. IMPRESSION: 1. No fracture or acute intracranial process. 2. Age-related changes including mild to moderate diffuse volume loss and mild scattered white matter hypoattenuation consistent with chronic small vessel ischemic disease. Reviewed, dictated and finalized at location A. PER IMPRESSION: 1. No fracture or acute intracranial process. 2. Age-related changes including mild to moderate diffuse volume loss and mild scattered white matter hypoattenuation consistent with chronic small vessel isc hemic disease.
--- NOTE | ~2023-08-03 | CT_ITS ---
EXAMINATION: CT cervical spine wo con DATE: 08/03/2023 12:15 INDICATION: Head injury TECHNIQUE: Computed tomography (CT) of the cervical spine was performed without intravenous contrast. The dose-length product (DLP) was 330.52 mGy-cm. Automated exposure control and iterative reconstruc tion technique were employed. COMPARISON: 11/04/2011 FINDINGS: There are 2 mm of retrolisthesis of C5 on C6. The vertebral body heights are maintained. Th ere is severe loss of intervertebral disc space height at C4-5 and C5-6. There is mild loss of disc s pace height throughout the remainder of the cervical spine. The odontoid process is intact. There is multilevel severe facet and uncovertebral joint osteoarthritis. There is soft tissue gas and hematoma posterior overlying the occipital skull and tracking into the posterior neck, consistent with head i njury. IMPRESSION: 1. Moderate to severe cervical spondylosis without acute findings. Reviewed, dictated and finalized at location B. RT FORKER
[2023-08-03 12:19] VITALS: BP 123/64; PULSE 73; RESP 18; TEMP 36.3; O2SAT 99
--- NOTE | 2023-08-03 12:30 | ED.FALL ---
HPI - Fall General Chief Complaint: Fall Stated Complaint: fell, hit head bleeding Time Seen by Provider: 08/03/23 12:30 Focused HPI: This is a 83 year old female that presents to the ER after a fall today with head injury. Reports slipping out of her wheelchair. She hit the back of her head. She did not lose consciousness. She sustained a contusion to the back of her head. Denies neck pain, back pain, vision changes, vomiting, numbness or weakness. GENERAL: Well-appearing, well-nourished, and in no acute distress. HEAD: Normocephalic, atraumatic. CHEST: Clear to auscultation. ?No respiratory distress. HEART: Regular rate and rhythm.? NEURO: ?Alert and oriented x3. Patient screened in triage and initial orders placed.? ?Additional care and disposition to be based upon?diagnostic testing and treatment. Related Data Home Medications Medication Instructions Recorded Confirmed cholecalciferol (vitamin D3) 50 50 mcg PO DAILY 11/04/20 12/04/21 mcg (2,000 unit) capsule escitalopram oxalate 20 mg tablet 20 mg PO DAILY 11/04/20 12/04/21 multivitamin 1 tablet PO DAILY 11/04/20 12/04/21 Allergies Allergy/AdvReac Type Severity Reaction Status Date / Time codeine Allergy Intermediate Nausea Verified 08/03/23 12:19 NARCOTICS Allergy Intermediate Nausea Uncoded 01/21/22 13:00 Review of Systems Review of Systems: CONSTITUTIONAL: Denies fever EYES: Denies visual changes GASTROINTESTINAL: Denies vomiting MUSCULOSKELETAL: Denies back pain, joint pain, or myalgia. NEUROLOGIC: Reports headache. denies numbness, or weakness. All systems reviewed & are unremarkable except as noted in HPI and below PMFSH Past Medical History Medical History Abnormality of gait Alzheimer's dementia [facility]. Cerebral atherosclerosis Diverticulosis ALINA (generalized anxiety disorder) Laceration of head Surgical History Surgical History History of cholecystectomy Family History Family History Mother , Late 70s Heart disease Father Family estrangement Other Family history of malignant neoplasm of skin Social History Social History (Updated 01/21/22 @ 13:03 by Jasmin Espinoza) Social History: Smoking status: Never smoker Second hand tobacco smoke exposure: No Alcohol intake: never Substance use: never Substance use type: does not use Living arrangements: with family Additional living arrangements comments: lives with spouse and son Occupation/Education: retired Gender identity (if verbalized by the patient): Female Sexual Orientation (if Verbalized by the Patient): Straight or Heterosexual Spiritual care concerns: No Exam Narrative: GENERAL: Well-appearing, well-nourished, and in no acute distress. HEAD: Normocephalic. Contusion to the posterior scalp with superficial oozing of blood EYES: PERRLA and EOMI. ENT: Nares clear, no rhinorrhea or epistaxis. Mucous membranes moist. Oropharynx without tonsillar hypertrophy exudate or other lesions. Bilateral TMs pearly guerrero non-bulging NECK: Supple. No adenopathy or masses. No midline spinal tenderness CHEST: Clear to auscultation. No respiratory distress. No wheezes rales or rhonchi HEART: Regular rate and rhythm. No murmur heard. Normal peripheral pulses. BACK: No midline spinal tenderness EXTREMITIES: Normal range of motion. No edema or obvious deformity. SKIN: Warm, dry, no rash. NEURO: No focal deficits. Alert and oriented x3. Cranial nerves 2-12 grossly intact PSYCH: Normal mood and affect Course Course Emergency Course: Patient and family updated on workup and agree with plan of care Vital Signs Vital signs: Vital Signs Temperature 97.3 F L 08/03/23 12:19 Pulse Rate 73 08/03/23 12:19 Respiratory Rate
[2023-08-03] MEDS: TETANUS,DIPHTHERIA,AC PERTUSSIS ADULT (0.5 ML) BOOSTRIX IM (12:55)
== END 2023-08-03 13:29 | disposition home or self-care (01) ==
PROVIDERS: Emergency Provider Physician Assistant; PCP Family Medicine
DX: S09.90XA Unspecified injury of head, initial encounter (principal); M47.812 Spondylosis without myelopathy or radiculopathy, cervical region; G30.9 Alzheimer's disease, unspecified; F02.80 Dementia in other diseases classified elsewhere, unspecified severity, without behavioral disturbance, psychotic disturbance, mood disturbance, and anxiety; F41.9 Anxiety disorder, unspecified; Z23 Encounter for immunization; W05.0XXA Fall from non-moving wheelchair, initial encounter
CPT/HCPCS: 70450; 72125; 90471; 90715; 99284